=== PATIENT | male | born 2005 | race Caucasian/White ===

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

== ENCOUNTER 2024-10-25 04:51 | Emergency (ER) | payer OTHER, SELFPAY ==
[2024-10-25] VITALS (12 sets, daily range): BP systolic 138–162; BP diastolic 79–95; PULSE 69–108; RESP 16–17; TEMP 36; O2SAT 96–100; BMI 29.9
--- NOTE | 2024-10-25 05:12 | ED.BACK ---
HPI - Back Pain/Injury <Hoa Cooley DO - Last Filed: 10/25/24 17:53> General Chief Complaint: Back Pain/Injury Stated Complaint: Left sided back pain, vomiting Time Seen by Provider: 10/25/24 05:04 Source: family History of Present Illness HPI Narrative: Patient 18-year-old male history of ADHD anxiety presenting to day with back pain and nausea. He has had left flank pain ongoing off and on for couple of weeks. Today it is significantly more. He denies any sort of radiation to his abdomen or down his leg. He was very clearly uncomfortable. Actively vomiting. Prior history of kidney stone. Does not remember any specific injury or incident. Related Data Home Medications Medication Instructions Recorded Confirmed albuterol sulfate 90 mcg/actuation 1 inhalation inhalation Q4-6H PRN 03/17/20 04/07/20 breath activated powder inhaler Shortness Of Breath fluticasone propionate 220 1 puff inhalation BID 03/17/20 04/07/20 mcg/actuation HFA aerosol inhaler loratadine 10 mg tablet (Claritin) 10 mg PO DAILY 03/17/20 04/07/20 minocycline 100 mg capsule 100 mg PO BID 03/23/20 04/07/20 Previous Rx's Medication Instructions Recorded docusate sodium 100 mg capsule 100 mg PO BID Prevent constipation 03/23/20 from pain meds #10 caps oxycodone 5 mg tablet 5 mg PO Q8H PRN Postoperative pain 03/23/20 #10 tabs oxycodone-acetaminophen 5 mg-325 1 tab PO Q6H PRN pain #14 tabs 10/25/24 mg tablet tamsulosin 0.4 mg capsule (Flomax) 0.4 mg PO DAILY #20 caps 10/25/24 Allergies Allergy/AdvReac Type Severity Reaction Status Date / Time No Known Drug Allergies Allergy Unverified 04/07/20 11:42 Patient History <Hoa Cooley DO - Last Filed: 10/25/24 17:53> Medical History (Updated 10/25/24 @ 09:45 by Sofy Gonzalez MD) Autism ADHD Social History household members: family Smoking Status: Never smoker alcohol intake: never substance use type: does not use Smoking Status: Never smoker Exam <Hoa Cooley DO - Last Filed: 10/25/24 17:53> Initial Vital Signs Initial Vital Signs: Vital Signs Temperature 96.8 F L 10/25/24 04:59 Pulse Rate 89 10/25/24 04:59 Respiratory Rate 17 10/25/24 04:59 Blood Pressure 162/95 H 10/25/24 04:59 Pulse Oximetry 98 10/25/24 04:59 Oxygen Delivery Method Room Air 10/25/24 04:59 GENERAL: Alert 18-year-old male and in no acute distress. HEENT: Head atraumatic,EOMI, pupils reactive, face symmetric, moist mucous membranes CARDIOVASCULAR: Regular rate and rhythm without murmurs, rubs or gallops. RESPIRATORY: Breath sounds equal bilaterally, no wheezes rales or rhonchi. ABDOMEN: Soft, nontender. Normoactive bowel sounds all 4 quadrants. No guarding or rebound. : Left CVA tenderness EXTREMITIES: Normal range of motion, no clubbing or edema. Neurovascularly intact NEUROLOGICAL: Alert and oriented x4.Normal gait and speech. Cranial nerves II through XII grossly intact. SKIN: Warm, dry, no laceration, no petechiae, no rashes or lesions. <Sofy Gonzalez MD - Last Filed: 10/25/24 16:01> Initial Vital Signs Initial Vital Signs: Vital Signs Temperature 96.8 F L 10/25/24 04:59 Pulse Rate 89 10/25/24 04:59 Respiratory Rate 17 10/25/24 04:59 Blood Pressure 162/95 H 10/25/24 04:59 Pulse Oximetry 98 10/25/24 04:59 Oxygen Delivery Method Room Air 10/25/24 04:59 Course <Hoa Cooley DO - Last Filed: 10/25/24 17:53> Orders Ordered: Discontinued Medications Hydromorphone HCl (Hydromorphone 0.5 Mg Inj) 0.5 mg IV Q15MIN PRN PRN Reason: Pain, Last Admin: 10/25/24 07:34 Dose: 0.5 mg Documented By: KAREY Sodium Chloride (Normal Saline 0.9%) 1,000 mls @ 1,000 mls/hr IV BOLUS ONE Stop: 10/25/24 08:26 Last Infusion: 10/25/24 10:36 Dose: Infused Documented By: Infusion: 10/25/24 10:07 Dose: 999 mls/hr Documented By: Infusion: 10/25/24 07:56 Dose: 0 mls/hr Documented By: Admin: 10/25/24 07:34 Dose: 1,000 mls/hr Documented By: TC Ketorolac Tromethamine (Ketorolac 30 Mg/Ml Vial) 15 mg IV NOW ONE Stop: 10/25/24 05:11 Last Admin: 10/25/24 05:39 Dose: 15 mg Documented By: SLAVA Morphine Sulfate (Morphine 2 Mg/Ml Inj) 2 mg IV NOW ONE Stop: 10/25/24 06:52 Last Admin: 10/25/24 06:53 Dose: 2 mg Documented By: Ondansetron HCl (Ondansetron 4 Mg/2 Ml Inj) 4 mg IV NOW ONE Stop: 10/25/24 05:11 Last Admin: 10/25/24 05:39 Dose: 4 mg Documented By: SLAVA Oxycodone/Acetaminophen (Oxycodone/Acetaminophen 5/325 Tablet) 1 tab PO NOW ONE Stop: 10/25/24 10:04 Last Admin: 10/25/24 10:08 Dose: 1 tab Documented By: KAREY Tamsulosin HCl (Tamsulosin 0.4 Mg Capsule) 0.4 mg PO NOW ONE Stop: 10/25/24 09:42 Last Admin: 10/25/24 10:05 Dose: 0.4 mg Documented By: KAREY Vital Signs Vital signs: Vital Signs - 8 hr 10/25/24 10:04 10/25/24 10:05 10/25/24 10:05 Pulse Rate 108 H 106 H Respiratory Rate Blood Pressure 140/81 Pulse Oximetry 100 100 Oxygen Delivery Method 10/25/24 10:37 Pulse Rate 106 H Respiratory Rate 16 Blood Pressure 139/79 Pulse Oximetry 100 Oxygen Delivery Method Room Air <Sofy Gonzalez MD - Last Filed: 10/25/24 16:01> Orders Ordered: Discontinued Medications Hydromorphone HCl (Hydromorphone 0.5 Mg Inj) 0.5 mg IV Q15MIN PRN PRN Reason: Pain, Last Admin: 10/25/24 07:34 Dose: 0.5 mg Documented By: KAREY Sodium Chloride (Normal Saline 0.9%) 1,000 mls @ 1,000 mls/hr IV BOLUS ONE Stop: 10/25/24 08:26 Last Infusion: 10/25/24 10:36 Dose: Infused Documented By: Infusion: 10/25/24 10:07 Dose: 999 mls/hr Documented By: Infusion: 10/25/24 07:56 Dose: 0 mls/hr Documented By: Admin: 10/25/24 07:34 Dose: 1,000 mls/hr Documented By: TC Ketorolac Tromethamine (Ketorolac 30 Mg/Ml Vial) 15 mg IV NOW ONE Stop: 10/25/24 05:11 Last Admin: 10/25/24 05:39 Dose: 15 mg Documented By: SLAVA Morphine Sulfate (Morphine 2 Mg/Ml Inj) 2 mg IV NOW ONE Stop: 10/25/24 06:52 Last Admin: 10/25/24 06:53 Dose: 2 mg Documented By: Ondansetron HCl (Ondansetron 4 Mg/2 Ml Inj) 4 mg IV NOW ONE Stop: 10/25/24 05:11 Last Admin: 10/25/24 05:39 Dose: 4 mg Documented By: SLAVA Oxycodone/Acetaminophen (Oxycodone/Acetaminophen 5/325 Tablet) 1 tab PO NOW ONE Stop: 10/25/24 10:04 Last Admin: 10/25/24 10:08 Dose: 1 tab Documented By: KAREY Tamsulosin HCl (Tamsulosin 0.4 Mg Capsule) 0.4 mg PO NOW ONE Stop: 10/25/24 09:42 Last Admin: 10/25/24 10:05 Dose: 0.4 mg Documented By: KAREY Vital Signs Vital signs: Vital Signs - 8 hr 10/25/24 10:04 10/25/24 10:05 10/25/24 10:05 Pulse Rate 108 H 106 H Respiratory Rate Blood Pressure 140/81 Pulse Oximetry 100 100 Oxygen Delivery Method 10/25/24 10:37 Pulse Rate 106 H Respiratory Rate 16 Blood Pressure 139/79 Pulse Oximetry 100 Oxygen Delivery Method Room Air MDM - Back Pain/Injury <Hoa Cooley DO - Last Filed: 10/25/24 17:53> Lab Data 10/25/24 05:15 10/25/24 05:15 Labs: Lab Results 10/25/24 10/25/24 Range/Units 05:00 05:15 WBC 19.6 H (4.5-11.0) X10^3/uL RBC 5.70 (4.5-5.9) X10^6/uL Hgb 16.1 (13.5-17.5) g/dL Hct 47.6 (41-53) % MCV 83.7 (80-100) fL MCH 28.3 (26-34) PG MCHC 33.8 (30-36) % RDW 13.6 (11.6-14.8) % Plt Count 368 (150-400) X10^3/uL Neut % (Auto) 70.9 (50-75) % Lymph % (Auto) 16.4 L (25-40) % [place] % (Auto) 7.1 (3-14) % Eos % (Auto) 5.0 H (2-4) % Baso % (Auto) 0.6 (0-2) % Neut # (Auto) 80674 H (2927-0203) /uL Lymph # (Auto) 3200 (9337-5773) /uL [place] # (Auto) 1400 H (0-900) /uL Eos # (Auto) 1000 H (0-450) /uL Baso # (Auto) 100 (0-100) /uL Sodium 139 (137-145) mmol/L Potassium 4.1 (3.4-5.1) mmol/L Chloride 104 (98-107) mmol/L Carbon Dioxide 23 (22-32) mmol/L BUN 12 (9-20) mg/dL Creatinine 1.20 (0.66-1.25) mg/dL Estimated GFR > 60 (>60) mL/min BUN/Creatinine Ratio 10.0 (6-22) Glucose 130 H (70-100) mg/dL Calcium 10.1 (8.4-10.2) mg/dL Total Bilirubin 0.4 (0.2-1.3) mg/dL AST 41 (17-59) IU/L ALT 66 H (<50) IU/L Alkaline Phosphatase 93 (38-126) U/L Total Protein 8.1 (6.3-8.2) g/dL Albumin 4.9 (3.5-5.0) g/dL Globulin 3.2 (1.7-4.1) g/dL Albumin/Globulin Ratio 1.5 (1.0-2.8) Urine RBC >100/hpf H (0-5/HPF) Urine WBC 1-5/hpf (0-5/HPF) Ur Squamous Epith Cells 0-1 /hpf (0-5/HPF) Amorphous Sediment 1+ Urine Bacteria Moderate (10-30) H (None) Urine Mucus 1+ H (Negative) Ur Culture Indicated? Cult not indicated Vol Urine Centrifuged 10ml (spun) Urine Dip Bedside Urine Glucose Negative Bedside Urine Bilirubin - Negative Bedside Urine Ketone - Negative Urine Specific [place] 1.015 Bedside Urine Occult Blood +++ Bedside Urine pH 7.0 Bedside Urine Protein +/- 15 Bedside Urine Urobilinogen - Negative Bedside Urine Nitrite - Negative Bedside Urine Leukocytes - Negative Esterase MDM Narrative Medical decision making narrative: Patient is a 18-year-old male with left flank pain ongoing for 1-2 weeks. It is tender to palpation however he appears very uncomfortable. Urinalysis positive for hematuria he was leukocytosis of 19.6. Consider nephrolithiasis versus back strain. No evidence of SHOLA Patient signed out to Dr. Mehta, awaiting CT Patient is a 18-year-old male presenting today with left flank pain. He has had back pain off and on some intermittent nausea however today it is significantly worse. He was actually tender to palpation in the left flank. Urinalysis is positive for hematuria Blood work reviewed, he does have a moderate leukocytosis at 19.6 but differential is unremarkable, I suspect that this is due to demargination rather than infection CT scan shows left-sided moderate hydronephrosis and a mid ureteral kidney stone Patient's pain has been adequately controlled. He has been afebrile, discussed kidney stones treatment, anticipated course of resolution and reviewed what an obstructed pyelonephritis might feel like and reasons to return to the emergency department He has given a prescription for oxycodone and Flomax, discussed ibuprofen and Tylenol use. Suggested he follow up with urology clinic and information is given to do so There was no indication for hospitalization or further imaging at this time. He is safe for discharge <Sofy Gonzalez MD - Last Filed: 10/25/24 16:01> Lab Data Labs: Lab Results 10/25/24 10/25/24 Range/Units 05:00 05:15 WBC 19.6 H (4.5-11.0) X10^3/uL RBC 5.70 (4.5-5.9) X10^6/uL Hgb 16.1 (13.5-17.5) g/dL Hct 47.6 (41-53) % MCV 83.7 (80-100) fL MCH 28.3 (26-34) PG MCHC 33.8 (30-36) % RDW 13.6 (11.6-14.8) % Plt Count 368 (150-400) X10^3/uL Neut % (Auto) 70.9 (50-75) % Lymph % (Auto) 16.4 L (25-40) % [place] % (Auto) 7.1 (3-14) % Eos % (Auto) 5.0 H (2-4) % Baso % (Auto) 0.6 (0-2) % Neut # (Auto) 14619 H (2207-6139) /uL Lymph # (Auto) 3200 (0426-9679) /uL [place] # (Auto) 1400 H (0-900) /uL Eos # (Auto) 1000 H (0-450) /uL Baso # (Auto) 100 (0-100) /uL Sodium 139 (137-145) mmol/L Potassium 4.1 (3.4-5.1) mmol/L Chloride 104 (98-107) mmol/L Carbon Dioxide 23 (22-32) mmol/L BUN 12 (9-20) mg/dL Creatinine 1.20 (0.66-1.25) mg/dL Estimated GFR > 60 (>60) mL/min BUN/Creatinine Ratio 10.0 (6-22) Glucose 130 H (70-100) mg/dL Calcium 10.1 (8.4-10.2) mg/dL Total Bilirubin 0.4 (0.2-1.3) mg/dL AST 41 (17-59) IU/L ALT 66 H (<50) IU/L Alkaline Phosphatase 93 (38-126) U/L Total Protein 8.1 (6.3-8.2) g/dL Albumin 4.9 (3.5-5.0) g/dL Globulin 3.2 (1.7-4.1) g/dL Albumin/Globulin Ratio 1.5 (1.0-2.8) Urine RBC >100/hpf H (0-5/HPF) Urine WBC 1-5/hpf (0-5/HPF) Ur Squamous Epith Cells 0-1 /hpf (0-5/HPF) Amorphous Sediment 1+ Urine Bacteria Moderate (10-30) H (None) Urine Mucus 1+ H (Negative) Ur Culture Indicated? Cult not indicated Vol Urine Centrifuged 10ml (spun) Urine Dip Bedside Urine Glucose Negative Bedside Urine Bilirubin - Negative Bedside Urine Ketone - Negative Urine Specific [place] 1.015 Bedside Urine Occult Blood +++ Bedside Urine pH 7.0 Bedside Urine Protein +/- 15 Bedside Urine Urobilinogen - Negative Bedside Urine Nitrite - Negative Bedside Urine Leukocytes - Negative Esterase MDM Narrative Medical decision making narrative: Patient is a 18-year-old male presenting today with left flank pain. He has had back pain off and on some intermittent nausea however today it is significantly worse. He was actually tender to palpation in the left flank. Urinalysis is positive for hematuria Blood work reviewed, he does have a moderate leukocytosis at 19.6 but differential is unremarkable, I suspect that this is due to demargination rather than infection CT scan shows left-sided moderate hydronephrosis and a mid ureteral kidney stone Patient's pain has been adequately controlled. He has been afebrile, discussed kidney stones treatment, anticipated course of resolution and reviewed what an obstructed pyelonephritis might feel like and reasons to return to the emergency department He has given a prescription for oxycodone and Flomax, discussed ibuprofen and Tylenol use. Suggested he follow up with urology clinic and information is given to do so There was no indication for hospitalization or further imaging at this time. 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 You are given pain medication, fluid as well as tamsulosin. Tamsulosin is a medicine that helps relax the tissue in the ureter to encourage the stone to pass a bit more easily. Once the stone has passed, you do not need to continue the tamsulosin Please make sure you are increasing your fluid intake. Using 400 mg of ibuprofen (2 [id number] pills) and 1 Tylenol every 6 hours can be very helpful in controlling pain. For severe pain you can use 400 mg of ibuprofen plus Percocet. This contains oxycodone, is a narcotic will cause constipation so please add a stool softener. There is always potential for addiction with any narcotics use this for severe pain You are likely going to be able to pass this kidney stone by yourself and do not need any other workup. In the emergency department your white blood cell count was slightly elevated and I suspect that was because you were hurting so much when you initially came in. I do not see any other signs of infection. Infection associated with a kidney stone however can be a very big deal. If you are developing fevers, chills, increasing pain simply can not be controlled with pain medication you do need to return to the emergency department Please call [facility] and explain that you are in the emergency department, diagnosed with a kidney stone and need to be seen for ER follow up in consultation. Their phone number is [phone] [place] [address] Prescriptions: New oxycodone-acetaminophen 5-325 mg tablet 1 tab PO Q6H PRN (Reason: pain) Qty: 14 0RF tamsulosin [Flomax] 0.4 mg capsule 0.4 mg PO DAILY Qty: 20 0RF Rx Instructions: Discontinue after a kidney stone has passed No Action albuterol sulfate 90 mcg/actuation aerosol powdr breath activated 1 inhalation INHALATION Q4-6H PRN (Reason: Shortness Of Breath) loratadine [Claritin] 10 mg tablet 10 mg PO DAILY fluticasone propionate 220 mcg/actuation HFA aerosol inhaler 1 puff INHALATION BID minocycline 100 mg capsule 100 mg PO BID oxycodone 5 mg tablet 5 mg PO Q8H PRN (Reason: Postoperative pain) Qty: 10 0RF docusate sodium 100 mg capsule 100 mg PO BID Qty: 10 0RF Referrals: Christine Crandall [Primary Care Provider] - Stand Alone Forms: Patient Portal/API/Survey
[2024-10-25 05:28] LABS: Add Manual Diff / Slide Review NO; Basophils Absolute Auto 100 /uL (0-100); Basophils Percent Auto 0.6 % (0-2); Eosinophils Absolute Auto 1000 /uL (0-450); Hematocrit 47.6 % (41-53); Hemoglobin 16.1 g/dL (13.5-17.5); Lymphocytes Absolute Auto 3200 /uL (1100-4500); Lymphocytes Percent Auto 16.4 % (25-40); Mean Corpuscular HGB Conc 33.8 % (30-36); Mean Corpuscular Hemoglobin 28.3 PG (26-34); Mean Corpuscular Volume 83.7 fL (80-100); Monocytes Absolute Auto 1400 /uL (0-900); Monocytes Percent Auto 7.1 % (3-14); Neutrophils Absolute Auto 13900 /uL (1500-7000); Neutrophils Percent Auto 70.9 % (50-75); Platelet Count 368 X10^3/uL (150-400); Red Cell Distribution Width 13.6 % (11.6-14.8); White Blood Cell Count 19.6 X10^3/uL (4.5-11.0)
[2024-10-25 05:30] LABS: Bacteria Urine Moderate (10-30); RBC Urine >100/HPF (0-5/HPF); Squamous Epithelial Cell Urine 0-1 /HPF (0-5/HPF); Urine Volume 10mL (spun); WBC Urine 1-5/HPF (0-5/HPF)
[2024-10-25 05:31] LABS: Amorphous Sediment Urine 1+; Culture Indicated Urine Cult Not Indicated; Mucus Urine 1+ (Negative)
[2024-10-25] MEDS: ONDANSETRON 4 MG/2 ML INJ IV (05:39)
[2024-10-25] MEDS: KETOROLAC 30 MG/ML VIAL 15 MG IV (05:39)
[2024-10-25 05:40] LABS: Alanine Aminotransferase 66 IU/L (<50); Albumin 4.9 g/dL (3.5-5.0); Albumin Globulin Ratio 1.5 (1.0-2.8); Alkaline Phosphatase 93 U/L (38-126); Aspartate Aminotransferase 41 IU/L (17-59); Bilirubin Total 0.4 mg/dL (0.2-1.3); Blood Urea Nitrogen 12 mg/dL (9-20); Calcium 10.1 mg/dL (8.4-10.2); Carbon Dioxide 23 mmol/L (22-32); Chloride 104 mmol/L (98-107); Estimated Glomerular Filt Rate > 60 mL/min (>60); Globulin 3.2 g/dL (1.7-4.1); Glucose 130 mg/dL (70-100); HEMOLYSIS < 15 (0-50); Potassium 4.1 mmol/L (3.4-5.1); Sodium 139 mmol/L (137-145); Total Protein 8.1 g/dL (6.3-8.2)
[2024-10-25] MEDS: MORPHINE 2 MG/ML INJ IV (06:53)
[2024-10-25] MEDS: HYDROMORPHONE 0.5 MG INJ IV (07:34)
[2024-10-25] MEDS: SODIUM CHLORIDE 0.9% 1,000 ML 1000 ML IV (07:34)
--- NOTE | 2024-10-25 07:54 | PC.NURSE ---
Pt left with medics at 0755 to go to [facility] for CT imaging. RN notified [facility] CT department that pt is en route.
[2024-10-25] MEDS: TAMSULOSIN 0.4 MG CAPSULE PO (10:05)
[2024-10-25] MEDS: OXYCODONE/ACETAMINOPHEN 5/325 TABLET 1 TAB PO (10:08)
--- NOTE | 2024-10-25 10:11 | PC.NURSE ---
Patient and mother returned from [facility]. Pt A O x 4 and rating pain 1-2/10. VS within baseline.
== END 2024-10-25 10:38 | disposition home or self-care (01) ==
PROVIDERS: Emergency Medicine; Emergency Provider Emergency Medicine; PCP Family Medicine
DX: N13.2 Hydronephrosis with renal and ureteral calculous obstruction (principal)
CPT/HCPCS: 36415; 80053; 81003; 81015; 85025; 96361; 96374; 96375; 99284; J1171; J1885; J2270; J2405